=== PATIENT | female | born 1995 | race Caucasian/White ===

== ENCOUNTER 2017-06-17 00:41 | Emergency (ER) | payer OTHER ==
[2017-06-17 00:48] VITALS: RESP 16; O2SAT 97
[2017-06-17] MEDS ORDERED: AMOXICILLIN/CLAVULANATE POT 875/125 MG TAB PO ONE (01:35)
[2017-06-17] MEDS ORDERED: TDAP ADULT 0.5 ML INJ (BOOSTRIX) IM ONE (01:35)
--- NOTE | 2017-06-17 01:51 | EDPHY ---
H & P Time Seen by Provider: 06/17/17 01:08 HPI/ROS: CHIEF COMPLAINT: dog bite HISTORY OF PRESENT ILLNESS: 22-year-old female presents emergency department with a laceration to her upper lip from a dog bite tonight. Tetanus is not up- to-date, dog's rabies vaccinations are up-to-date. No laceration, patient remembers the entire accident, no neck pain, no other complaints. [facility] has been contacted. Physical Exam: GEN: Awake, alert, oriented, no acute distress RESP: nl resp effort MSK: Normal appearing SKIN: 4 mm laceration to upper lip not through the vermilion border Constitutional: Initial Vital Signs Temperature (C) 36.4 C 06/17/17 00:44 Heart Rate 65 06/17/17 00:44 Respiratory Rate 16 06/17/17 00:44 Blood Pressure 122/91 H 06/17/17 00:44 O2 Sat (%) 97 06/17/17 00:44 O2 Delivery Mode Room Air Allergies/Adverse Reactions: No Known Allergies Allergy (Unverified 06/17/17 00:49) Home Medications: Medication Instructions Recorded Amoxicillin/Clavulanate Pot 875 mg PO BID #14 tab 06/17/17 [Augmentin 875Mg] MDM/Departure - MDM Procedures: Procedure: Laceration repair. Verbal consent was obtained from the patient. The 5 mm laceration on the upper lip was anesthetized using 1% lidocaine without epinephrine. The wound was carefully irrigated by the emergency department technician assistant. Next, the wound was prepped and draped in sterile fashion and explored to its base with a gloved finger. There were no deep structures involved. No vascular injury was identified. No foreign bodies were identified. The wound was repaired with 6.0 Prolene, 2 simple interrupted sutures. The wound repair was simple. The procedure was performed by myself. Tetanus and antibiotic status were addressed. - Depart Disposition: Home, Routine, Self-Care Clinical Impression: Dog bite of face Qualifiers: Encounter type: initial encounter Qualified Code(s): S01.85XA - Open bite of other part of head, initial encounter Lip laceration Qualifiers: Encounter type: initial encounter Qualified Code(s): S01.511A - Laceration without foreign body of lip, initial encounter Condition: Good Instructions: Animal Bite (ED), Facial Laceration (ED) Additional Instructions: Return to the emergency department in 5 days for suture removal. Take with 875 mg of Augmentin twice daily for 7 days. Return to the emergency department for increased pain, redness, swelling, fevers. Prescriptions: Amoxicillin/Clavulanate Pot [Augmentin 875Mg] 875 mg PO BID #14 tab Referrals: NONE *PRIMARY CARE P,. [Primary Care Provider] - As per Instructions
[2017-06-17 07:34] VITALS: BP 113/67; PULSE 67; TEMP 97.9
== END 2017-06-17 02:41 | disposition home or self-care (01) ==
PROC: 0CQ0XZZ Repair Upper Lip, External Approach (ICD-10-PCS; principal; 2017-06-17)
DX: S01.511A Laceration without foreign body of lip, initial encounter (principal); Z23 Encounter for immunization; W54.0XXA Bitten by dog, initial encounter